=== PATIENT | female | born 2000 | race Two or more races ===

== ENCOUNTER 2022-04-20 03:55 | Emergency (ER) | payer OTHER ==
[~2022-04-20] VITALS: Ht 162.6 cm; Wt 113.4 kg
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
[2022-04-20] MEDS ORDERED: MORPHINE SULFATE INJ 4 MG/ML DISP.SYRIN ONE (04:09)
[2022-04-20] MEDS: MORPHINE SULFATE INJ 2 MG/ML DISP.SYRIN IV ONE (04:12)
--- NOTE | 2022-04-20 04:39 | NUR ---
CHRONIC SPECIALIST AT PT'S BEDSIDE
[2022-04-20] MEDS ORDERED: HYDROMORPHONE 1 MG/1 ML DISP.SYRIN ONE ×2 (05:24→07:00)
[2022-04-20] MEDS: HYDROMORPHONE 1 MG/1 ML DISP.SYRIN IV ONE ×2 (05:39→07:05)
--- NOTE | 2022-04-20 05:43 | NUR ---
PAGED DR SALAZAR AT [phone] , ORTHO
--- NOTE | 2022-04-20 06:41 | NUR ---
DR HIGUERA ON THE PHONE WITH DR LLOYD
[2022-04-20] MEDS ORDERED: HYDR-4209 PO (07:02)
[2022-04-20] MEDS ORDERED: IBUP-1957 PO (07:02)
--- NOTE | 2022-04-20 07:16 | NUR ---
LEFT FOREARM SUGAR TONGUE SPLINT APPLIED.
--- NOTE | 2022-04-20 07:35 | NUR ---
Patient discharged to home in stable condition. RX Written and verbal after care instructions given. Patient verbalizes understanding of instruction. PT ambulatory with a steady gait
[2022-04-20 07:36] VITALS: BP 143/81
--- NOTE | 2022-04-20 07:36 | NUR ---
IV removed. Catheter intact and site benign. Pressure and 4x4 applied to site. No bleeding noted.
== END 2022-04-20 07:36 | disposition home or self-care (01) ==
LOC: ER 03:56
DX: S52.322A Displaced transverse fracture of shaft of left radius, initial encounter for closed fracture (principal); Z79.899 Other long term (current) drug therapy; W03.XXXA Other fall on same level due to collision with another person, initial encounter; Y93.89 Activity, other specified; Y92.89 Other specified places as the place of occurrence of the external cause; Y99.8 Other external cause status
CPT/HCPCS: 29125; 73090; 96374; 96375; 96376; 99284; J1170 ×2; J2270